=== PATIENT | male | born 1940 | race Caucasian/White ===

== ENCOUNTER 2021-08-14 05:45 | Day surgery (SDC) | payer MEDICARE ==
[~2021-08-14] VITALS: Ht 182.9 cm; Wt 68.0 kg
[~2021-08-14 05:45] MED LIST: AMLODIPINE BESYL5 MG PO; ASPIRIN EC81 MG PO; CARVEDILOL25 MG PO; DILTIAZEM 24HR120 M1 PO; FLOMAX0.4 MG PO; HYDROCHLOROTHIA25 MG PO; LEVAQUIN500 MG PO; LOSARTAN-HCTZ1 EAC2 PO; NORCO 10-325 T1 EACH PO; NORVASC5 MG PO; OMEPRAZOLE20 MG PO; PRAVACHOL40 MG PO; PRAVACHOL80 MG PO; PRAVASTATIN SOD40 MG PO; VITAMIN D31000 UNIT PO
--- NOTE | 2021-08-14 09:35 | NUR ---
08/14/21 0935 Sheets,Vicky 0907 PT ARRIVED TO PACU ON RA PT DENIES CONCERNS. VSS. SPINAL EDUCATION GIVEN, PT UNABLE TO MOVE FEET AND REPORTS NUMBNESS. PT DEINES PAIN AND CBI CLEAR TO LIGHT PINK WITH NO CLOTS. 0930 PLAN OF CARE DISCUSSED. PT CONTINUES TO DENY CONCERNS.
--- NOTE | 2021-08-14 10:06 | NUR ---
PT TO FLOOR WITH MICHAEL BROWN AND . PT DENIES PAIN. STILL HAS SOME NUMBNESS AND TINGLING IN FEET.
--- NOTE | 2021-08-14 10:41 | NUR ---
PT ALERT, ORIENTED AND SUPPORTED BY HIS . OR STAFF WAITING, GAVE WORDS OF ENCOURAGEMENT AND BLESSING. PT THANKED ME, WILL FOLLOW
--- NOTE | 2021-08-14 11:12 | NUR ---
PT ATE ALL OF LUNCH AND ASKED FOR ANOTHER CUP OF COFFEE. ESCOBAR WENT HOME FOR THE DAY. PT WATCHING TV AND DENIES CONCERNS.
--- NOTE | 2021-08-14 11:24 | OR ---
[facility] [address] [place], [place] [address] Signed DATE OF OPERATION: 08/14/2021 SURGEON: Lauro Bridges MD PREOPERATIVE DIAGNOSES: 1. Benign prostatic hyperplasia with lower urinary tract symptoms. 2. Urinary retention. POSTOPERATIVE DIAGNOSES: 1. Benign prostatic hyperplasia with lower urinary tract symptoms. 2. Urinary retention. NAMES OF PROCEDURES: Transurethral resection of the prostate. ANESTHESIA: Spinal with sedation. ESTIMATED BLOOD LOSS: 15 mL. COMPLICATIONS: None. SPECIMENS: Prostate chips sent to pathology for evaluation. DRAINS: A 22-Azerbaijani three-way Cardenas catheter, connected to continuous bladder irrigation. INDICATIONS FOR PROCEDURE: Mr. Huitron is a very pleasant 80-year-old gentleman who has had a longstanding history of BPH symptoms. More recently, he has been experiencing bouts of urinary retention. He recently underwent diagnostic cystoscopy, which revealed a rather large median lobe with evidence of active bladder outlet obstruction. He presents today to undergo transurethral resection of the prostate. OPERATIVE FINDINGS: 1. Visual inspection of the external genitalia reveals an uncircumcised phallus with a glanular meatus. Testicles are descended bilaterally. Digital rectal examination Electronically Signed By: LAURO BRIDGES MD 08/14/21 1124 PATIENT NAME: LEON HUITRON OPERATIVE REPORT DATE OF : 38 REPORT #: [id number] PHYSICIAN: LAURO BRIDGES MD PCP: LIGIA VARGAS PA-C REPORT IS CONFIDENTIAL AND NOT TO BE RELEASED WITHOUT AUTHORIZATION [facility] [address] [facility] [place] [place] [address] Signed reveals a 50 g prostate with no focal nodularity. 2. Diagnostic cystoscopy reveals no evidence of any suspicious masses, lesions, or stones. There is diffuse bladder wall trabeculation, around grade 2-3 present. 3. The patient's prostate was resected using a bipolar cautery, beginning with the median lobe of the prostate, followed by the right lateral and then left lateral lobes of the prostate. At the end of the procedure, I was able to easily visualize the bilateral ureteral orifices effluxing clear urine. 4. At the end of the procedure, a 22-Azerbaijani three-way Cardenas catheter was inserted into the patient's bladder and connected to continuous bladder irrigation. DESCRIPTION OF PROCEDURE: After informed consent was obtained, patient was taken back to the operating room. He was transferred from the [facility] to the operating room table, where spinal anesthesia with sedation was initiated. He was then placed in the dorsal lithotomy position and his genitalia prepped and draped in a standard sterile fashion. Using a 30-degree lense, a 26-Azerbaijani introducer was inserted into the patient's bladder using a visual obturator. Diagnostic cystoscopy was then performed. The visual obturator was then switched out for the resectoscope. Again, I noted the location of the bilateral ureteral orifices. I then began resection of the large median lobe using bipolar cautery. This was followed by the left lateral lobe and the right lateral lobe of the prostate. All the while adequate hemostasis was achieved and maintained using the bipolar loop cautery, followed by the button electrode. The procedure was performed without difficulty. Intermittently, the patient's bladder was irrigated with a Robson syringe to extract all of the prostate chips from the patient's bladder. This was done without difficulty. These chips were then placed in a specimen cup to be sent to pathology for evaluation. Adequate hemostasis was re-evaluated at the end of the procedure, and a button was used to promote coagulation in the area of the TUR defect. Once all the bleeding was contained and the chips were removed from the bladder, a 22-Azerbaijani three-way Cardenas catheter was inserted into the patient's bladder and then manually irrigated. Once I was able to confirm placement of the catheter, it was then connected to continuous bladder irrigation. A digital rectal examination was then performed at the end of the procedure. The procedure was then terminated. The patient tolerated the procedure well without any complication. He will now be transferred to the postanesthesia care unit in stable condition. DISPOSITION: The patient will remain in the hospital tonight to have his continuous bladder irrigation slowly weaned to off, keeping his urine clear to light pink in color. He will be discharged to home tomorrow with his Cardenas catheter to gravity drainage once he receives a dose of his IV Rocephin. He will be scheduled to return to clinic in 3 days to undergo a voiding trial. He will be sent home tomorrow on Cipro 250 mg p.o. b.i.d. for a total of 7 days, along with oxycodone 5 mg p.o. q.6 hours p.r.n. pain dispensed Electronically Signed By: LAURO BRIDGES MD 08/14/21 1124 PATIENT NAME: LEON HUITRON OPERATIVE REPORT DATE OF : 38 REPORT #: [id number] PHYSICIAN: LAURO BRIDGES MD PCP: LIGIA VARGAS PA-C REPORT IS CONFIDENTIAL AND NOT TO BE RELEASED WITHOUT AUTHORIZATION [address] [address] Signed #15. MD ALANNA Howard/MODL /[id number] Copies: ~ Electronically Signed By: LAURO BRIDGES MD 08/14/21 1124 PATIENT NAME: JOSE MARTINLEONMARCUS FUNK OPERATIVE REPORT DATE OF : 38 REPORT #: [id number] PHYSICIAN: LAURO BRIDGES MD PCP: LIGIA VARGAS PA-C REPORT IS CONFIDENTIAL AND NOT TO BE RELEASED WITHOUT AUTHORIZATION
[2021-08-14] MEDS ORDERED: WARFARIN SODIUM2 MG PO (12:18)
[2021-08-14] MEDS ORDERED: WARFARIN SODIUM3 MG PO (12:21)
--- NOTE | 2021-08-14 12:23 | NUR ---
PATIENT CALLED TO GO TO THE BATHROOM, REMINDED HIM THAT HE HAD A MAXWELL AND HE SAID IT WAS A BM. LOOKED AT THE ORDERS AND THEY'RE STRICT BEDREST. PUT HIM ON A BEDPAN AND HE IS NOT HAPPY ABOUT IT. CALL LIGHT IN PLACE.
--- NOTE | 2021-08-14 14:16 | NUR ---
URINE PINK ON SLOW DRIP. PT DENIES PAIN OR NEEDS.
[2021-08-14] MEDS ORDERED: OXYCODONE HCL5 MG PO (14:50)
[2021-08-14] MEDS ORDERED: CIPRO250 MG PO (14:52)
--- NOTE | 2021-08-14 17:04 | NUR ---
PT SITTING UP IN BED DRINKING COFFEE AND WATCHING THE NEWS. PT STATES HE FEELS GREAT AND DENIES CONCERNS. MAXWELL EMPTIED F OR 250 URINE OUT. LIGHT PINK AT SLOW DRIP. VS STABLE.
--- NOTE | 2021-08-14 19:42 | NUR ---
RECEIVED REPORT FROM DAY SHIFT RN. PATIENT IS RESTING IN BED. PATIENT DENIES ANY NEEDS. CBI IS AT A SLOW DRIP. CALL LIGHT IN REACH.
--- NOTE | 2021-08-14 20:26 | EKG ---
[facility] [address] [facility] [place] [address] Signed Sinus rhythm with 1st degree AV block Left axis deviation Left bundle branch block Abnormal ECG No previous ECGs available Confirmed by PAT MORA MD ([id number]) on 08/14/2021 8:26:08 PM Electronically Signed By: PAT MORA MD 08/14/212025 PATIENT NAME: JOSE MARTINLEONMARCUS MCGREGORRY Electrocardiogram DATE OF : 38 PHYSICIAN: PAT MORA MD REPORT #: [id number] REPORT IS CONFIDENTIAL AND NOT TO BE RELEASED WITHOUT AUTHORIZATION
--- NOTE | 2021-08-14 20:30 | NUR ---
ASSISTED PRIMARY MICHAEL RUIZ. ICE WATER REFILLED.
--- NOTE | 2021-08-14 20:45 | NUR ---
PATIENT ASSESMENT COMPLETED. CBI TITRATED DOWN. PATIENT DENIES ANY PAIN. IV INFUSING PER ORDER. VITALS TAKEN AND RECORDED. MAXWELL EMPTID AND MAXWELL CARE COMPLETED. INTAKE AND OUTPUT RECORDED. PATIENTS SCHEDULED MEDICATIONS GIVEN PER ORDER. PATIENT DENIES ANY NEEDS. CALL LIGHT IN REACH.
--- NOTE | 2021-08-14 22:11 | NUR ---
PATIENT IS RESTING IN BED. CBI CLAMPED AT THIS TIME. PATIENT DENIES ANY NEEDS. CALL LIGHT IN REACH.
--- NOTE | 2021-08-15 00:14 | NUR ---
PATIENT IS RESTING IN BED. PATIENTS CBI CONTINUES TO BE CLAMPED. PATIENT DENIES ANY NEEDS. CALL LIGHT IN REACH.
--- NOTE | 2021-08-15 02:33 | NUR ---
PATIENTS VITALS TAKEN AND RECORDED. MAXWELL EMPTIED. INTAKE AND OUTPUT RECORDED. IV INFUSING PER ORDER. PATIENT DENIES ANY NEEDS. CALL LIGHT IN REACH.
--- NOTE | 2021-08-15 03:58 | NUR ---
PATIENT IS RESTING IN BED WITH EYES CLOSED, RR 16. CBI CONTINUES TO BE CLAMPED. CALL LIGHT IN REACH.
--- NOTE | 2021-08-15 06:10 | NUR ---
PATIENTS VITALS TAKEN AND RECORDED. MAXWELL EMPTIED. INTAKE AND OUTPUT RECORDED. PATIENTS IV INFUSING PER ORDER. PATIENT DENIES ANY NEEDS. CALL LIGHT IN REACH.
--- NOTE | 2021-08-15 07:15 | NUR ---
this rn received report from verenice roberts. pt awake this am and is ready to go home. pt requesting coffee this is am- this was provided to him
[2021-08-15] MEDS ORDERED: NICODERM CQ1 EAC2 TD (08:09)
--- NOTE | 2021-08-15 08:16 | NUR ---
this rn in pts room to give pts his morning meds. pt states that he is doing well with no pain noted, pt is ready to go home. this rn to call md to get an order for nicotine patch- nohemi from pharmacy to call in order.
--- NOTE | 2021-08-15 10:30 | NUR ---
Spoke briefly with pt. He is wanting to dc. He denies needs. No DME at home. Will see Dr. Ton Serna for catheter removal. Home with .
--- NOTE | 2021-08-15 14:14 | PATH ---
[facility] [address] [place], [place] [address] Signed SPECIMEN(S): A PROSTATE CHIPS SPECIMEN SOURCE: A. PROSTATE CHIPS CLINICAL HISTORY: Benign prostatic hyperplasia with lower urinary tract symptoms. FINAL PATHOLOGIC DIAGNOSIS: Prostate, transurethral resection: - Prostate tissue with glandular and stromal hyperplasia. BRP:cml:C2NR MICROSCOPIC EXAMINATION: Histologic sections of all submitted blocks are examined by light microscopy. These findings, together with the gross examination, support the pathologic diagnosis. GROSS DESCRIPTION: The specimen, labeled "RR, A," and designated on the requisition "prostate chips," is received in formalin and consists of irizarry rubbery soft tissue fragments measuring 7.5 x 6.9 x 1.4 cm in aggregate and weighing 12.1 g. Peoples[employer] Programmer sections are submitted in cassettes A1-A8. AT (under the direct supervision of a pathologist) The Gross Description was prepared using a voice recognition system. The report was reviewed for accuracy; however, sound-alike word errors, addition and/or deletions may occur. If there is any question about this report, please contact Client Services. PERFORMING LABORATORY: The technical component was performed by [employer], [address] [place] [id number] (Seasoning Mixer: Larisa Alonso MD; CLIA# [id number]). [facility] [address] [address] (CLIA# [id number]). Diagnostician: Mynor Corbett MD Pathologist Electronically Signed 08/15/2021 PATIENT NAME: LEON PHILIPPE PATHOLOGY DATE OF : 38 REPORT #: [id number] PHYSICIAN: STEVE CAREY PCP: LIGIA VARGAS PA-C REPORT IS CONFIDENTIAL AND NOT TO BE RELEASED WITHOUT AUTHORIZATION [address] [place], [place] [address] Signed Copies: ~ PATIENT NAME: LEON PHILIPPE PATHOLOGY DATE OF : 38 REPORT #: [id number] PHYSICIAN: STEVE CAREY PCP: LIGIA VARGAS PA-C REPORT IS CONFIDENTIAL AND NOT TO BE RELEASED WITHOUT AUTHORIZATION
== END 2021-08-15 10:25 | disposition home or self-care (01) ==
LOC: DS 05:45 → MS 05:45 → DS 07:30 → MS 09:45 → DS 08-15 10:25
PROVIDERS: ATTEND Urology
PROC: 0VT08ZZ Resection of Prostate, Via Natural or Artificial Opening Endoscopic (ICD-10-PCS; principal; 2021-08-14 07:30)
DX: N40.1 Benign prostatic hyperplasia with lower urinary tract symptoms (principal); R33.8 Other retention of urine; N13.8 Other obstructive and reflux uropathy; N39.43 Post-void dribbling; R39.15 Urgency of urination; R35.0 Frequency of micturition; I12.9 Hypertensive chronic kidney disease with stage 1 through stage 4 chronic kidney disease, or unspecified chronic kidney disease; N18.9 Chronic kidney disease, unspecified; J44.9 Chronic obstructive pulmonary disease, unspecified; F17.200 Nicotine dependence, unspecified, uncomplicated; Z80.42 Family history of malignant neoplasm of prostate
CPT/HCPCS: 00914; 88305; 90694; 93005; 93010; C1769; J0690; J0696; J2001; J2250; J2704; J7030; J7121